=== PATIENT | female | born 1955 | race Caucasian/White ===

== ENCOUNTER 2020-06-09 09:27 | Outpatient (CLI) | payer OTHER, SELFPAY ==
[2020-06-09 10:13] LABS: Basophils Percent Auto 0.4 % (0.2-1.2); Eosinophils Absolute Auto 0.3 K/mm3 (0-0.3); Eosinophils Percent Auto 3.7 % (0-4.4); Hematocrit 40.2 % (37.0-47.0); Hemoglobin 13.5 g/dL (12.0-15.0); Immature Granulocyte Absolute 0.02 K/mm3 (0.00-0.031); Immature Granulocyte Percent A 0.3 % (0-0.5); Lymphocytes Absolute Auto 2.36 K/mm3 (0.9-3.2); Lymphocytes Percent Auto 32.3 % (18.3-44.2); Mean Corpuscular HGB Conc 33.6 g/dl (32-36); Mean Corpuscular Hemoglobin 31.7 pg (26-34); Mean Corpuscular Volume 94.4 fl (80-100); Mean Platelet Volume 10.6 fl (7.4-10.4); Monocytes Absolute Auto 0.6 K/mm3 (0.1-0.6); Monocytes Percent Auto 8.8 % (2.6-8.5); Neutrophils Percent Auto 54.5 % (45.5-73.1); Platelet Count Result 245 k/mm3 (150-375); Red Blood Count 4.26 M/mm3 (4.2-5.4); Red Cell Distribution Width 13.9 % (11.5-14.5); White Blood Count 7.3 K/mm3 (4.5-10.0)
[2020-06-09 10:25] LABS: Hemoglobin A1C 7.1 % (<5.7)
[2020-06-09 10:29] LABS: Alanine Aminotransferase 17 U/L (4-35); Albumin Level 4.3 g/dL (3.5-5.1); Alkaline Phosphatase 94 U/L (38-126); Anion Gap 5 mmol/L (8-16); Aspartate Amino Transferase 21 U/L (14-36); Bilirubin,Total 0.6 mg/dL (0.2-1.3); Blood Urea Nitrogen 12 mg/dL (7-17); Calcium 9.4 mg/dL (8.4-10.2); Carbon Dioxide 28 mmol/L (22-30); Chloride 103 mmol/L (98-107); Cholesterol 228 mg/dL (0-200); Estimated Glomerular Filt Rate > 60; Glucose 136 mg/dL (65-105); HDL Direct 67 mg/dL; Potassium 4.2 mmol/L (3.4-5.0); Sodium 136 mmol/L (137-145); Triglycerides 56 mg/dL (<150)
[2020-06-09 10:40] LABS: LDL Cholesterol Direct 126 mg/dL
[2020-06-09 11:15] LABS: Creatinine Urine 29.2 mg/dL
[2020-06-09 11:19] LABS: MALB Creatinine Ratio < 20.5 mg/g (0-30); Microalbumin Urine Random < 6.0 mg/L (0-16.7)
== END 2020-06-09 09:28 | disposition home or self-care (01) ==
LOC: ANHLAB 09:31
PROVIDERS: PCP Internal Medicine; Visit Provider Internal Medicine
DX: E11.9 Type 2 diabetes mellitus without complications (principal); E78.5 Hyperlipidemia, unspecified
CPT/HCPCS: 36415; 80053; 80061; 82043; 83036; 85025

== ENCOUNTER 2020-07-23 15:36 | Outpatient (CLI) | payer OTHER, SELFPAY ==
--- NOTE | ~2020-07-23 | CT_ITS ---
EXAMINATION: CT abdomen wo/w con EXAM DATE: 07/23/2020 16:21 INDICATION: Left renal mass. TECHNIQUE: Spiral CT of the abdomen was performed without and then with intravenous injection of 100 mL Omnipaque 350. Axial, coronal and sagittal images were reviewed. The dose-length product (DLP) for this examination was 478.76 mGy-cm. The exposure was tailored according to patient size (auto mA exposure control), and iterative reconstruction (ASIR) was used as additional dose reduction techniq ue. There is no prior study for comparison. 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 There is punctate rig ht nephrolithiasis. No hydronephrosis. The liver, spleen, adrenal glands and pancreas are unremarkab le. Gallbladder is unremarkable. No biliary obstruction. There is no retroperitoneal lymphadenopa thy. There is mild to moderate scattered arteriosclerotic disease. There is moderate-sized gastroesophageal hiatal hernia. There is expected amount of colonic stool. No free intraperitoneal gas. The heart is normal in size. There are no pericardial or pleural eff usions. Along the left major fissure there is 3 mm triangular-shaped pleural-based nodule likely gra nuloma. There are no osteoblastic or osteolytic lesions identified. IMPRESSION: 1. Exophytic left renal mass with suspicion of macroscopic fat internally. Most likely angiomyolipom a. 2. Punctate right nephrolithiasis. 3. Moderate hiatal hernia. Reviewed, dictated and finalized at location A. IMPRESSION: 1. Exophytic left renal mass with suspicion of macroscopic fat internally. Mos t likely angiomyolipoma. 2. Punctate right nephrolithiasis. 3. Moderate hiatal hernia.
[2020-07-23 16:25] LABS: Estimated Glomerular Filt Rate > 60
== END 2020-07-23 15:37 | disposition home or self-care (01) ==
LOC: ANHIMG 15:38
PROVIDERS: PCP Internal Medicine; Visit Provider Urology
DX: N20.0 Calculus of kidney (principal); K44.9 Diaphragmatic hernia without obstruction or gangrene
CPT/HCPCS: 74170; Q9967

== ENCOUNTER 2020-08-30 11:51 | Outpatient (CLI) | payer OTHER, SELFPAY ==
--- NOTE | 2020-08-30 12:57 | ECG_ITS ---
Measurements Intervals [place] Rate: 63 P: 69 NV: 138 QRS: 20 QRSD: 91 T: 41 QT: 379 QTc: 391 Interpretive Statements SINUS RHYTHM POSSIBLE LEFT ATRIAL ENLARGEMENT BASELINE ARTIFACT- I, II, III, AVR, AVL, AVF BORDERLINE ECG Electronically Signed On 08-30-2020 13:31:13 [employer] by Yuval Pike D.O.
[2020-08-30 13:14] LABS: Basophils Percent Auto 0.3 % (0.2-1.2); Eosinophils Absolute Auto 0.4 K/mm3 (0-0.3); Eosinophils Percent Auto 4.5 % (0-4.4); Hematocrit 39.8 % (37.0-47.0); Hemoglobin 13.5 g/dL (12.0-15.0); Immature Granulocyte Absolute 0.02 K/mm3 (0.00-0.031); Immature Granulocyte Percent A 0.2 % (0-0.5); Lymphocytes Absolute Auto 2.87 K/mm3 (0.9-3.2); Lymphocytes Percent Auto 30.9 % (18.3-44.2); Mean Corpuscular HGB Conc 33.9 g/dl (32-36); Mean Corpuscular Hemoglobin 32.1 pg (26-34); Mean Corpuscular Volume 94.8 fl (80-100); Mean Platelet Volume 9.8 fl (7.4-10.4); Monocytes Absolute Auto 0.8 K/mm3 (0.1-0.6); Monocytes Percent Auto 8.6 % (2.6-8.5); Neutrophils Absolute Auto 5.1 K/mm3 (1.3-6.7); Neutrophils Percent Auto 55.5 % (45.5-73.1); Platelet Count Result 242 k/mm3 (150-375); White Blood Count 9.3 K/mm3 (4.5-10.0)
[2020-08-30 13:26] LABS: Alanine Aminotransferase 20 U/L (4-35); Albumin Level 4.2 g/dL (3.5-5.1); Alkaline Phosphatase 76 U/L (38-126); Anion Gap 5 mmol/L (8-16); Aspartate Amino Transferase 24 U/L (14-36); Bilirubin,Total 0.6 mg/dL (0.2-1.3); Blood Urea Nitrogen 13 mg/dL (7-17); Calcium 9.7 mg/dL (8.4-10.2); Carbon Dioxide 32 mmol/L (22-30); Chloride 102 mmol/L (98-107); Estimated Glomerular Filt Rate > 60; Glucose 95 mg/dL (65-105); INR 0.9; Potassium 4.5 mmol/L (3.4-5.0); Prothrombin Time 12.6 Seconds (11.1-14.7); Sodium 139 mmol/L (137-145)
[2020-08-30 13:27] LABS: Partial Thromboplastin Time 26.7 SECONDS (22.3-36.8)
== END 2020-08-30 11:52 | disposition home or self-care (01) ==
LOC: ANHSURGERY 11:54
PROVIDERS: PCP Internal Medicine; Visit Provider Urology
DX: Z01.810 Encounter for preprocedural cardiovascular examination (principal); N99.3 Prolapse of vaginal vault after hysterectomy; I10 Essential (primary) hypertension; Z51.81 Encounter for therapeutic drug level monitoring; Z79.899 Other long term (current) drug therapy
CPT/HCPCS: 36415; 80053; 85025; 85610; 85730; 86850; 86900; 86901; 87086; 87088; 93005

== ENCOUNTER 2020-09-03 01:58 | Outpatient (CLI) | payer OTHER, SELFPAY ==
[2020-09-03 19:10] LABS: SARS-CoV-2 RNA PCR Negative
== END 2020-09-03 01:59 | disposition home or self-care (01) ==
LOC: ANHCOVIDDT 01:58
PROVIDERS: PCP Internal Medicine; Visit Provider Urology
DX: Z01.812 Encounter for preprocedural laboratory examination (principal); Z20.828 Contact with and (suspected) exposure to other viral communicable diseases
CPT/HCPCS: 87635; C9803; U0003

== ENCOUNTER 2020-09-06 00:56 | Day surgery (SDC) | payer OTHER, SELFPAY ==
--- NOTE | 2020-08-27 09:42 | PM.IMHP ---
H&P: HPI History of Present Illness Date/Time: 08/27/20 09:42 Chief complaint: stress incontinence, vag vault prolapse Narrative: Marii Garcia is a 65 year old female with POP and TITI Review of Systems Review of Systems: All systems reviewed & are unremarkable except as noted in HPI and below PMFSH Past Medical History Medical History (Updated 08/27/20 @ 09:44 by Sebastian Adams MD) Bilateral hand pain Bladder prolapse Chest pain Diabetes Dyslipidemia Elevated blood sugar Hypertension Postmenopausal Psoriasis Screening mammogram, encounter for Skin cancer SOB (shortness of breath) Tobacco use Trigger finger Uncontrolled hypertension Family History Family History Other Diabetes mellitus Malignant neoplasm Social History Social History Smoking packs per day: 1 Smoking cigarettes per day: 20.0 Years smoked: 30 Smoking pack-years: 30.00 Smoking status: Current every day smoker Tobacco type: cigarettes Alcohol intake: current Drinks per week: 2 Meds Home Medications and Allergies Home Medications Medication Instructions Recorded Confirmed Type metformin 500 mg tablet 1,000 mg PO BID #360 tablet 09/11/19 07/29/20 Rx hydrochlorothiazide 12.5 mg tablet 12.5 mg PO QAM #90 tablet 06/08/20 07/29/20 Rx lancets 28 gauge #100 each 06/09/20 07/29/20 Rx rosuvastatin 20 mg tablet 20 mg PO DAILY #90 tablet 06/09/20 07/29/20 Rx varenicline 0.5 mg (11)-1 mg (42) See Rx Instructions PO PER PKG DIR 06/09/20 07/29/20 Rx tablets in a dose pack #53 each flash glucose sensor #6 each 06/10/20 07/29/20 Rx dapagliflozin 5 mg tablet 5 mg PO DAILY #30 tablet 06/17/20 07/29/20 Rx lisinopril 40 mg tablet 40 mg PO QAM #90 tablet 06/17/20 07/29/20 Rx Allergies Allergy/AdvReac Type Severity Reaction Status Date / Time No Known Allergies Allergy Verified 07/29/20 13:30 Exam Const: General: cooperative and healthy appearing Eyes: General: appearance normal, both eyes and all related structures Resp: Effort & Inspection: normal respiratory effort and able to speak in complete sentences : Bimanual Exam- Adnexa, other: vaginal apex descent (+6) Skin: General skin exam: normal color Neuro: General: oriented to person and patient oriented x3 Assessment and Plan Assessment and plan (1) Prolapse of vaginal vault after hysterectomy: Code(s): N99.3 - Prolapse of vaginal vault after hysterectomy Status: Acute Assessment and Plan: robotic colpopexy (2) TITI (stress urinary incontinence, female): Code(s): N39.3 - Stress incontinence (female) (male) Status: Acute Assessment and Plan: urethral sling
[2020-08-30 12:10] VITALS: BMI 24.6
[2020-09-06] VITALS (9 sets, daily range): BP systolic 106–151; BP diastolic 41–68; PULSE 65–79; RESP 12–20; TEMP 36.2–36.3; O2SAT 99–100
--- NOTE | 2020-09-06 07:14 | WPDHPUPDATE1 ---
History and Physical Update Update Date/Time: 09/06/20 07:14 History and Physical has been reviewed, including an updated exam of the patient. There are NO changes in the patient's condition. Risks, benefits, and alternatives have been discussed and questions answered. Patient agrees to proceed with procedure.
--- NOTE | 2020-09-06 12:04 | WPDANESEPPF ---
Anes - Initial Pre Proc Eval Procedure: Operation Date: 09/06/20 13:30 Proposed Procedures p Robotic Sacrocolpopexy, Possible Urethral Sling - Sebastian Adams MD Date/Time: 09/06/20 12:04 Surgeon: Sebastian Adams MD Pre Op Diagnosis: stress incontinence, vag vault prolapse Patient Data Age: 65 Gender: F Height: 5 ft 6 in Weight: 68.2 kg Last Vital Signs Temp 97.1 F L 09/06/20 11:40 Pulse 79 09/06/20 11:40 Resp 20 09/06/20 11:40 BP 122/41 L 09/06/20 11:40 Pulse Ox 100 09/06/20 11:40 Allergies Allergy/AdvReac Type Severity Reaction Status Date / Time No Known Allergies Allergy Verified 09/06/20 12:05 Home Medications Medication Instructions Recorded Confirmed Type metformin 500 mg tablet 1,000 mg PO BID #360 tablet 09/11/19 08/30/20 Rx hydrochlorothiazide 12.5 mg tablet 12.5 mg PO QAM #90 tablet 06/08/20 08/30/20 Rx lancets 28 gauge #100 each 06/09/20 07/29/20 Rx rosuvastatin 20 mg tablet 20 mg PO DAILY #90 tablet 06/09/20 08/30/20 Rx flash glucose sensor #6 each 06/10/20 07/29/20 Rx lisinopril 40 mg tablet 40 mg PO QAM #90 tablet 06/17/20 08/30/20 Rx aspirin [Aspir-81] 81 mg PO DAILY 08/30/20 08/30/20 History dapagliflozin [Farxiga] 5 mg PO QAM 08/30/20 08/30/20 History Patient hx anesthesia problems: none Family hx anesthesia problems: none PMFSH Past Medical History Medical History (Updated 08/27/20 @ 09:44 by Sebastian Adams MD) Bilateral hand pain Bladder prolapse Chest pain Diabetes Dyslipidemia Elevated blood sugar Hypertension Postmenopausal Psoriasis Screening mammogram, encounter for Skin cancer SOB (shortness of breath) Tobacco use Trigger finger Uncontrolled hypertension Family History Family History Other Diabetes mellitus Malignant neoplasm Social History Social History Smoking packs per day: 1 Smoking cigarettes per day: 20.0 Years smoked: 45 Smoking pack-years: 45.00 Smoking status: Current every day smoker Tobacco type: cigarettes Alcohol intake: current Drinks per week: 2 Alcohol use details: 5 DRINKS/MONTH Substance use: never Living arrangements: with family Additional living arrangements comments: -[facility]KE Spiritual care concerns: No Anes - Eval Final PreProcedure Day of Procedure 09/06/20 12:04 Patient weight: overweight Heart: regular rate and rhythm Lungs: clear to auscultation Airway: Mallampati scale class II Neurological: alert and oriented Last oral intake: >/= 8 hours ASA classification: III Emergent: no Anesthetic plan: proceed Anesthesia type and monitoring: general ETT and standard monitoring Informed Consent: The patient's anesthetic plan and its attendant risks and benefits were discussed with the patient/family/POA. Questions were solicited and answers provided to the satisfaction of the patient/family/POA.
[2020-09-06] MEDS: LACTATED RINGERS 1,000 ML 30 ML IV CONT ×3 (12:10→16:32)
[2020-09-06 12:20] LABS: Glucose Point of Care 125 (65-105)
--- NOTE | 2020-09-06 13:07 | WPDHPUPDATE1 ---
History and Physical Update Update Date/Time: 09/06/20 13:07 History and Physical has been reviewed, including an updated exam of the patient. There are NO changes in the patient's condition. Risks, benefits, and alternatives have been discussed and questions answered. Patient agrees to proceed with procedure.
[2020-09-06] MEDS: ceFAZolin 2 GM/D5W 50 ML 2 GM/50 ML BAG IVPB (13:32)
--- NOTE | 2020-09-06 15:39 | PM.PROC ---
Procedure Note - Detailed Date of procedure: 09/06/20 Pre-op diagnosis: stress incontinence, vag vault prolapse Vaginal vault prolapse Female perineal laxity Post-op diagnosis: same Procedure performed: Robotic assisted laparoscopic sacral colpopexy Perineoplasty Cystoscopy Description of procedure: She understood the risks of bleeding, infection, damage to surrounding organs, bowel injury, bowel obstruction, recurrence of prolapse, persistent or recurrent stress incontinence, mesh related complications including exposure and extrusion, diskitis, postoperative voiding dysfunction including incontinence and retention, hip and leg pain, dyspareunia, and she agrees to proceed. She was correctly identified and informed consent was obtained. She was brought to the operating room. She was given general anesthesia. She was placed in the dorsal lithotomy position. All pressure points were padded. She was given appropriate perioperative antibiotics. Time-out performed. I anesthetized the skin 3 fingerbreadths cephalad to the umbilicus. I incised the skin. I dissected down to locate the fascia. I grasped the fascia with Ti clamps. I entered the fascia sharply. I placed Vicryl sutures for later fascial closure. I placed a midline trocar. Under direct vision 2 additional trocars were placed on the right and left upper quadrant. She was placed in steep Trendelenburg and the robot was docked. I then sat at the console. With the Sizer in the vagina I created a plane on the anterior and posterior vaginal wall. This was done for several cm taking great care not to injure the vagina, bladder, or rectum. I introduced the mesh into the abdomen. I sewed the anterior leaflet of mesh on the anterior vaginal wall and posterior leaf of the mesh on the posterior vaginal wall with several Erieville-Yeison sutures taking great care not to go through and through. I then reflected the colon laterally. I opened up the posterior peritoneum over the sacral promontory. I carried this into the cul-de-sac. I kept the ureters lateral. I freed up the edges. I located the anterior longitudinal ligament of the sacrum. I tensioned the mesh appropriately. I did a vaginal exam to ensure prolapse reduction without undue tension. I then sewed the proximal leaflet of mesh onto the ligament with 3 sutures of 2 0 Erieville-Yeison. Next the mass was meticulously retroperitonealized with a running 2 0 Monocryl suture. I allowed the colon to go back into its normal anatomic location. There is no signs of any impingement or stricturing. The abdomen was exited. Fascia was closed. Skin was closed with Monocryl and glue. She was repositioned and prepped for perineal surgery. She had quite a bit of perineal laxity. I floresita out a jomar-shaped area of skin in the perineum. I anesthetized the skin. I removed this area of skin sharply. I then performed a perineoplasty with 0 Vicryl suture. I used a 2 0 Vicryl suture to close mucosa to mucosa. She had excellent perineal support without undue narrowing of the vagina. I then performed cystoscopy. The bladder is examined. There was no tumors, stones, foreign bodies, surgical artifact. Both ureters were seen to excrete clear yellow urine. There is no surgical artifact in the urethra. She was awakened and transferred to the PACU in stable condition. Implants: Colpopexy mesh Anesthesia: GETA Surgeon: Sebastian Adams MD Drains: Yes (Vasquez catheter) Packing: No Complications: No immediate complications Condition: stable Disposition: PACU
[2020-09-06] MEDS: fentaNYL CITRATE INJ (*CRX) 100 MCG/2 ML VIAL 25 MCG IV PUSH ×6 (15:49→16:22)
[2020-09-06 15:50] LABS: Glucose Point of Care 153 (65-105)
[2020-09-06] MEDS: oxyCODONE HCL (*CRX) 5 MG TAB IR PO (17:10)
--- NOTE | 2020-09-07 07:49 | WPDANESPN ---
Anes - Prog Note Post-Op Date/Time: 09/07/20 07:49 Cardiovascular status: normal Respiratory status: normal Airway patency: baseline Mental status: baseline Post-Op hydration status: normal Vital Signs: Last Vital Signs Temp 36.3 C L 09/06/20 15:39 Pulse 73 09/06/20 17:40 Resp 14 09/06/20 17:40 BP 131/65 09/06/20 17:40 Pulse Ox 100 09/06/20 16:35 Pain Score (VAS): 2 I/O: Intake & Output 09/06/20 09/06/20 09/07/20 15:59 23:59 07:59 Intake Total 0 250 Balance 0 250 09/06/20 09/06/20 12:18 15:48 POC Capillary Glucose 125 H 153 H Post-procedural complaints: none Patient Feedback: Patient satisfied with anesthetic care.
== END 2020-09-06 17:55 | disposition home or self-care (01) ==
PROVIDERS: PCP Internal Medicine; Visit Provider Urology
PROC: (CPT 57425; principal; 2020-09-06 13:30)
DX: N39.3 Stress incontinence (female) (male) (principal); N99.3 Prolapse of vaginal vault after hysterectomy; I10 Essential (primary) hypertension; E11.9 Type 2 diabetes mellitus without complications; E78.5 Hyperlipidemia, unspecified; L40.9 Psoriasis, unspecified; F17.210 Nicotine dependence, cigarettes, uncomplicated; Z79.84 Long term (current) use of oral hypoglycemic drugs
CPT/HCPCS: 57425; A9270; C1781; C9290; J0330; J0690; J1100; J2250; J2405; J2704; J2710; J3010; J7030; J7120

== ENCOUNTER 2020-09-14 09:42 | Outpatient (CLI) | payer OTHER, SELFPAY ==
[2020-09-14 10:22] LABS: Hemoglobin A1C 7.1 % (<5.7)
[2020-09-14 10:28] LABS: Alanine Aminotransferase 16 U/L (4-35); Albumin Level 4.1 g/dL (3.5-5.1); Alkaline Phosphatase 83 U/L (38-126); Anion Gap 3 mmol/L (8-16); Aspartate Amino Transferase 23 U/L (14-36); Bilirubin,Total 0.7 mg/dL (0.2-1.3); Blood Urea Nitrogen 18 mg/dL (7-17); Calcium 9.6 mg/dL (8.4-10.2); Carbon Dioxide 32 mmol/L (22-30); Chloride 98 mmol/L (98-107); Cholesterol 162 mg/dL (0-200); Estimated Glomerular Filt Rate > 60; Glucose 136 mg/dL (65-105); HDL Direct 55 mg/dL; Potassium 4.5 mmol/L (3.4-5.0); Sodium 133 mmol/L (137-145); Triglycerides 111 mg/dL (<150)
[2020-09-14 10:39] LABS: LDL Cholesterol Direct 81 mg/dL
[2020-09-14 10:56] LABS: Creatinine Urine 86.6 mg/dL
[2020-09-14 11:00] LABS: MALB Creatinine Ratio < 6.9 mg/g (0-30); Microalbumin Urine Random < 6.0 mg/L (0-16.7)
== END 2020-09-14 09:43 | disposition home or self-care (01) ==
LOC: ANHLAB 09:43
PROVIDERS: PCP Internal Medicine; Visit Provider Internal Medicine
DX: E78.2 Mixed hyperlipidemia (principal); E11.9 Type 2 diabetes mellitus without complications; E78.5 Hyperlipidemia, unspecified; I10 Essential (primary) hypertension
CPT/HCPCS: 36415; 80053; 80061; 82043; 83036

== ENCOUNTER 2020-12-11 12:29 | Emergency (ER) | payer OTHER, SELFPAY ==
--- NOTE | 2020-12-11 12:32 | ED.URI ---
HPI - URI/Sore Throat General Chief Complaint: Upper Respiratory Infection Stated Complaint: cough Time Seen by Provider: 12/11/20 12:32 Source: patient and RN notes reviewed History of Present Illness HPI Narrative: Patient is a 65-year-old female who presents the urgent care with complaints of cough, sinus drainage since Sunday. Patient states she initially also had a sore throat which states that that cleared up . Patient states that she was Covid tested on Sunday, which was negative. Patient denies of any fever, chills, nausea, vomiting, shortness of breath or chest pain. 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 Patient has been taking Mucinex without much improvement. Patient also reports of some fatigue due to coughing all night. No other acute complaints. No acute distress noted. Patient aware of the plan of care. Some parts of this dictation were generated by voice recognition software and may contain typographical and/or grammatical inaccuracies. Related Data Home Medications Medication Instructions Recorded Confirmed aspirin 81 mg PO DAILY 08/30/20 12/11/20 metformin 1,000 mg PO BID 12/11/20 12/11/20 Allergies Allergy/AdvReac Type Severity Reaction Status Date / Time No Known Allergies Allergy Verified 12/11/20 12:42 Review of Systems Review of Systems: Narrative: CONSTITUTIONAL: Denies fever, chills, or sweats. EYES: Denies visual changes, redness, or discharge. ENT: Denies rhinorrhea, congestion, sore throat, or otalgia. Reports of sinus drainage CARDIOVASCULAR: Denies chest pain, palpitations, or edema. RESPIRATORY: Reports of incessant coughing, sometimes productive GASTROINTESTINAL: Denies abdominal pain, nausea, vomiting, or diarrhea. GENITOURINARY: Denies dysuria or hematuria. SKIN: Denies rash or itching. MUSCULOSKELETAL: Denies back pain, joint pain, or myalgia. NEUROLOGIC: Denies headache, numbness, or weakness. All other systems reviewed are negative, except as documented in HPI. [facility] Past Medical History Medical History (Updated 12/11/20 @ 12:51 by GYPSY Clark) Bilateral hand pain Bladder prolapse Chest pain Diabetes Dyslipidemia Elevated blood sugar Hypertension Postmenopausal Psoriasis Screening mammogram, encounter for Skin cancer SOB (shortness of breath) Tobacco use Trigger finger Uncontrolled hypertension Family History Family History Other Diabetes mellitus Malignant neoplasm Social History Social History Smoking packs per day: 1 Smoking cigarettes per day: 20.0 Years smoked: 45 Smoking pack-years: 45.00 Smoking status: Current every day smoker (vaper) Tobacco type: cigarettes Alcohol intake: current Drinks per week: 2 Substance use: never Additional living arrangements comments: -[facility]KE Spiritual care concerns: No Comments At the time of my signature, I reviewed and agree with the nursing past medical, surgical, social, and family history. There is no relevant family history pertinent to the patient complaint. Exam Narrative: Exam Narrative: GENERAL: This is a well-nourished, well-developed patient, in no apparent distress. HEAD: normocephalic, atraumatic. EYES: PERRL. Sclera clear/white. Vision is grossly intact. EARS: External ears normal, auditory canals clear and without drainage, TMs normal without perforation. Hearing grossly intact. NOSE: External nose normal with no obvious nasal discharge, nares without redness, no rhinorrhea. THROAT: Mucous membranes moist, posterior pharynx clear. Moderate postnasal drainage without exudate or ulceration NECK: Neck supple, non-tender without lymphadenopathy, masses or thyromegaly. CARDIOVASCULAR: Regular rate and rhythm without murmurs, gallops, or rubs. RESPIRATORY: Diffuse throughout all lung sounds, sl
[2020-12-11 12:48] VITALS: BP 144/80; PULSE 90; RESP 18; TEMP 36.6; O2SAT 98
== END 2020-12-11 12:56 | disposition home or self-care (01) ==
PROVIDERS: Emergency Provider Nurse Practitioner Family; PCP Internal Medicine
DX: J40 Bronchitis, not specified as acute or chronic (principal); F17.210 Nicotine dependence, cigarettes, uncomplicated; E11.9 Type 2 diabetes mellitus without complications; E78.5 Hyperlipidemia, unspecified; I10 Essential (primary) hypertension; Z85.828 Personal history of other malignant neoplasm of skin
CPT/HCPCS: 99213; G0463